=== PATIENT | male | born 1980 ===

== ENCOUNTER 2025-01-04 06:25 | Day surgery (SDC) | payer BC, SELFPAY | END 2025-01-04 11:20 | disposition home or self-care (01) | LOC: GI 06:25 | PROVIDERS: ATTENDING PHYSICIAN Student in an Organized Health Care Education/Training Program | DX: Z12.11 Encounter for screening for malignant neoplasm of colon (principal); D12.3 Benign neoplasm of transverse colon; K63.5 Polyp of colon; K57.30 Diverticulosis of large intestine without perforation or abscess without bleeding; K64.4 Residual hemorrhoidal skin tags; Z83.719 Family history of colon polyps, unspecified | CPT/HCPCS: 45385; 88305 ==